=== PATIENT | male | born 2000 | race Caucasian/White ===

== ENCOUNTER 2018-09-18 10:28 | Emergency (ER) | payer OTHER ==
[~2018-09-18] VITALS: Ht 188 cm; Wt 65.8 kg
[2018-09-18] MEDS ORDERED: MOBIC7.5 MG PO (11:09)
[2018-09-18 13:15] VITALS: BP 120/79
== END 2018-09-18 11:45 | disposition home or self-care (01) ==
LOC: ER 10:28
DX: S43.492A Other sprain of left shoulder joint, initial encounter (principal); X50.1XXA Overexertion from prolonged static or awkward postures, initial encounter; Y92.89 Other specified places as the place of occurrence of the external cause; Y93.89 Activity, other specified; Y99.8 Other external cause status